=== PATIENT | male | born 1990 | race Two or more races ===

== ENCOUNTER 2021-07-08 20:53 | Emergency (ER) | payer SELFPAY ==
[~2021-07-08] VITALS: Ht 170.2 cm; Wt 72.6 kg
[2021-07-08 20:53] VITALS: BP 150/85
== END 2021-07-08 21:56 | disposition left against medical advice (07) ==
LOC: ER 20:55
DX: R07.89 Other chest pain (principal); R20.0 Anesthesia of skin; R42 Dizziness and giddiness; Z53.21 Procedure and treatment not carried out due to patient leaving prior to being seen by health care provider
CPT/HCPCS: 93005